=== PATIENT | female | born 1990 | race Caucasian/White ===

== ENCOUNTER 2016-12-18 20:50 | Emergency (ER) | payer BC ==
[2016-12-18 23:09] VITALS: BP 147/91
== END 2016-12-18 23:09 | disposition home or self-care (01) ==
LOC: ED 20:50
DX: N39.0 Urinary tract infection, site not specified (principal)
CPT/HCPCS: J1885

== ENCOUNTER 2016-12-24 17:57 | Emergency (ER) | payer BC ==
[~2016-12-24] VITALS: Ht 170.2 cm; Wt 114.5 kg
[2016-12-24 21:37] LABS: PLATELET COUNT 415 x10^3mcL (130-400)
[2016-12-24 21:46] LABS: CALCIUM 8.9 mg/dL (8.5-10.1); CARBON DIOXIDE 27.4 mmol/L (21-32); CHLORIDE SERUM 100 mmol/L (98-107); CREATININE SERUM 0.7 mg/dL (0.6-1.0); GFR1 > 60 mL/min; GLUCOSE SERUM 104 mg/dL (74-106); POTASSIUM SERUM 3.9 mmol/L (3.5-5.1); SODIUM SERUM 137 mmol/L (136-145)
[2016-12-24 21:50] LABS: ALBUMIN 3.5 g/dL (3.4-5.0); ALKALINE PHOSPHATASE 71 U/L (46-116); ALT/SGPT 26 U/L (14-59); AMYLASE 76 U/L (25-115); AST/SGOT 16 U/L (15-37); BILIRUBIN TOTAL 0.5 mg/dL (0.20-1.00); LIPASE 127 IU/L (73-393); TOTAL PROTEIN, SERUM 8.3 g/dL (6.4-8.2)
[2016-12-24 22:18] LABS: BAND NEUTROPHIL 0 % (0-10); BASOPHIL 0 % (0-2); MONOCYTE 2 % (0-7); SEGMENTED NEUTROPHILS 80 % (37-75)
[2016-12-24 22:20] LABS: PLATELET MORPHOLOGY PLATELETS NORMAL; rbc morphology (normal/abnorm) NORMAL (NORMAL)
[2016-12-25 01:21] VITALS: BP 117/67
== END 2016-12-25 01:21 | disposition home or self-care (01) ==
LOC: ED 17:57
PROVIDERS: Emergency Medicine
DX: I88.0 Nonspecific mesenteric lymphadenitis (principal); M54.9 Dorsalgia, unspecified
CPT/HCPCS: J1885; Q0162; Q9967

== ENCOUNTER 2017-06-27 14:37 | Emergency (ER) | payer BC ==
[~2017-06-27] VITALS: Ht 170.2 cm; Wt 121.1 kg
[2017-06-27 14:51] VITALS: Ht 170.2 cm; Wt 121.1 kg
[2017-06-27 15:48] LABS: CALCIUM 8.4 mg/dL (8.5-10.1); CARBON DIOXIDE 25.4 mmol/L (21-32); CHLORIDE SERUM 102 mmol/L (98-107); CREATININE SERUM 0.8 mg/dL (0.6-1.0); GFR1 > 60 mL/min; GLUCOSE SERUM 104 mg/dL (74-106); POTASSIUM SERUM 3.7 mmol/L (3.5-5.1); SODIUM SERUM 136 mmol/L (136-145)
[2017-06-27 15:54] LABS: ALBUMIN 3.4 g/dL (3.4-5.0); ALKALINE PHOSPHATASE 65 U/L (46-116); ALT/SGPT 14 U/L (14-59); AMYLASE 65 U/L (25-115); AST/SGOT 18 U/L (15-37); BILIRUBIN TOTAL 0.67 mg/dL (0.20-1.00); LIPASE 133 IU/L (73-393); TOTAL PROTEIN, SERUM 8.2 g/dL (6.4-8.2)
[2017-06-27 15:55] LABS: BASOPHIL % 0.2 % (0-2); PLATELET COUNT 343 x10^3mcL (130-400)
[2017-06-27 15:59] LABS: RED CELL DISTRIBUTION WIDTH 14.7 % (11.5-14.5)
[2017-06-27 16:03] LABS: UA SPECIFIC GRAVITY >=1.030 (1.005-1.035); microscopic required? YES; urine erythrocyte 3+ (NEGATIVE)
[2017-06-27 17:32] VITALS: BP 120/80
== END 2017-06-27 17:32 | disposition home or self-care (01) ==
LOC: ED 14:37
PROVIDERS: Emergency Medicine
DX: B34.9 Viral infection, unspecified (principal)
CPT/HCPCS: 87804; J1885; J2405; J7030; Q0092

== ENCOUNTER 2018-02-07 20:18 | Emergency (ER) | payer BC ==
[~2018-02-07] VITALS: Ht 167.6 cm; Wt 117.9 kg
[2018-02-07 20:24] VITALS: Ht 167.6 cm; Wt 117.9 kg
[2018-02-07 22:04] LABS: BASOPHIL % 1.7 % (0-2); PLATELET COUNT 391 x10^3mcL (130-400)
[2018-02-07 22:05] LABS: RED CELL DISTRIBUTION WIDTH 15.1 % (11.5-14.5)
[2018-02-07 22:11] LABS: CALCIUM 8.7 mg/dL (8.5-10.1); CARBON DIOXIDE 20.2 mmol/L (21-32); CHLORIDE SERUM 105 mmol/L (98-107); CREATININE SERUM 0.9 mg/dL (0.6-1.0); GFR1 > 60 mL/min; GLUCOSE SERUM 106 mg/dL (74-106); POTASSIUM SERUM 3.5 mmol/L (3.5-5.1); SODIUM SERUM 138 mmol/L (136-145)
[2018-02-07 22:17] LABS: ALKALINE PHOSPHATASE 91 U/L (46-116); ALT/SGPT 27 U/L (14-59); AST/SGOT 12 U/L (15-37); BILIRUBIN TOTAL 0.3 mg/dL (0.20-1.00); CHOLESTEROL 147 mg/dL (<200); CHOLESTEROL/HDL RATIO 3.9; HDL CHOLESTEROL 38 mg/dL (40-60); TRIGLYCERIDES 148 mg/dL (<150)
[2018-02-07 22:18] LABS: ALBUMIN 3.2 g/dL (3.4-5.0)
[2018-02-08 00:59] VITALS: BP 129/76
== END 2018-02-08 00:59 | disposition home or self-care (01) ==
LOC: ED 20:18
PROVIDERS: Specialist
DX: M94.0 Chondrocostal junction syndrome [Tietze] (principal)
CPT/HCPCS: 36415; 83880; Q0092; Q9967

== ENCOUNTER 2018-11-17 16:01 | Emergency (ER) | payer BC ==
[~2018-11-17] VITALS: Ht 167.6 cm; Wt 124.7 kg
[2018-11-17 16:29] VITALS: Ht 167.6 cm; Wt 124.7 kg
[2018-11-17 16:58] LABS: BASOPHIL % 0.6 % (0-2); PLATELET COUNT 380 x10^3mcL (130-400)
[2018-11-17 17:06] LABS: RED CELL DISTRIBUTION WIDTH 15.2 % (11.5-14.5)
[2018-11-17 17:15] LABS: CALCIUM 8.4 mg/dL (8.5-10.1); CARBON DIOXIDE 25.5 mmol/L (21-32); CHLORIDE SERUM 105 mmol/L (98-107); CREATININE SERUM 0.7 mg/dL (0.6-1.0); GFR1 > 60 mL/min; GLUCOSE SERUM 100 mg/dL (74-106); SODIUM SERUM 139 mmol/L (136-145)
[2018-11-17 17:20] LABS: ALKALINE PHOSPHATASE 93 U/L (46-116); ALT/SGPT 24 U/L (14-59); AST/SGOT 13 U/L (15-37); BILIRUBIN TOTAL 0.26 mg/dL (0.20-1.00); TOTAL PROTEIN, SERUM 7.7 g/dL (6.4-8.2)
[2018-11-17 20:48] VITALS: BP 146/90
== END 2018-11-17 20:30 | disposition home or self-care (01) ==
LOC: ED 16:01
PROVIDERS: Emergency Medicine
DX: R55 Syncope and collapse (principal); N93.8 Other specified abnormal uterine and vaginal bleeding; G43.909 Migraine, unspecified, not intractable, without status migrainosus; Z98.890 Other specified postprocedural states
CPT/HCPCS: J7030